=== PATIENT | female | born 1990 ===

== ENCOUNTER → 2021-03-11 | Outpatient (CLI) | payer OTHER ==
[~2021-03-11] MED LIST: ALBU90OI INH; AZIT250 PO; IBUP800 PO; OXYACE5T PO; PRED10 PO; Verotin-Gr Cap1 EACH
== END ==
LOC: LAB SHORT 12:49
DX: N92.1 Excessive and frequent menstruation with irregular cycle (principal)
CPT/HCPCS: 84703